=== PATIENT | female | born 1970 | race Caucasian/White ===

== ENCOUNTER 2022-05-20 11:07 | Outpatient (CLI) | payer OTHER, SELFPAY | END 2022-05-20 11:08 | disposition home or self-care (01) | LOC: RAD 11:11 → INJ CL 11:13 | PROVIDERS: PCP Family Medicine; Visit Provider Family Medicine | DX: M54.16 Radiculopathy, lumbar region (principal); M51.36 Other intervertebral disc degeneration, lumbar region | CPT/HCPCS: 62323; J0702; Q9966 ==

== ENCOUNTER 2022-12-20 09:34 | Outpatient (CLI) | payer OTHER, SELFPAY | END 2022-12-20 09:35 | disposition home or self-care (01) | LOC: INJ CL 09:34 | PROVIDERS: PCP Family Medicine; Visit Provider Family Medicine | DX: M54.16 Radiculopathy, lumbar region (principal); M51.36 Other intervertebral disc degeneration, lumbar region | CPT/HCPCS: 62323; J0702; Q9966 ==

== ENCOUNTER 2023-06-06 08:55 | Outpatient (CLI) | payer OTHER, MEDICARE, SELFPAY | END 2023-06-06 08:56 | disposition home or self-care (01) | LOC: INJ CL 09:00 | PROVIDERS: PCP Family Medicine; Visit Provider Family Medicine | DX: M54.16 Radiculopathy, lumbar region (principal); M51.36 Other intervertebral disc degeneration, lumbar region | CPT/HCPCS: 62323; J0702; Q9966 ==

== ENCOUNTER 2023-10-03 10:42 | Outpatient (CLI) | payer OTHER, MEDICARE, SELFPAY | END 2023-10-03 10:43 | disposition home or self-care (01) | LOC: INJ CL 10:43 | PROVIDERS: PCP Family Medicine; Visit Provider Family Medicine | DX: M54.16 Radiculopathy, lumbar region (principal); M51.36 Other intervertebral disc degeneration, lumbar region | CPT/HCPCS: 64483; J1100; Q9966 ==